=== PATIENT | female | born 2000 | race Caucasian/White ===

== ENCOUNTER 2021-09-19 02:26 | Inpatient (IN) ==
[2021-09-19] MEDS ORDERED: Charcoal ACTIVATED 25 GM/120 ML BTL PO ONE (02:45)
[2021-09-19 03:30] LABS: Hematocrit 34 % (35-47); Hemoglobin 10.7 g/dL (12.0-16.0); Mean Corpuscular HGB Conc 32 g/dL (31-36); Mean Corpuscular Hemoglobin 23 pg (27-31); Mean Corpuscular Volume 72 fL (80-97); Mean Platelet Volume 9.3 fL (7.4-10.4); Platelet Count 326 10^3/uL (150-450); Red Blood Count 4.71 10^6 /uL (3.70-4.87); Red Cell Distribution Width 20 % (10-15); White Blood Count 8.5 10^3/uL (3.5-10.8)
[2021-09-19] MEDS: Lactated Ringers 1000 ml BAG 1,000 ML IV SCH ×2 (03:36→03:53)
[2021-09-19 03:47] LABS: ABS Lymphocytes 2.3 10^3/ul (1.0-4.8); ABS Monocytes 0.6 10^3/ul (0-0.8); ABS Neutrophils 4.6 10^3/ul (1.5-7.7); Eosinophil % 12.2 %; Lymphocyte % 26.7 %
[2021-09-19 03:51] LABS: ALT 11 U/L (7-52); AST 18 U/L (13-39); Albumin 4.6 g/dL (3.2-5.2); Albumin/Globulin Ratio 1.7 (1-3); Alkaline Phosphatase 46 U/L (35-149); Anion Gap 7 mmol/L (2-11); Blood Urea Nitrogen 13 mg/dL (6-24); CO2 Carbon Dioxide 26 mmol/L (22-32); Calcium 9.8 mg/dL (8.6-10.3); Chloride 105 mmol/L (101-111); Globulin 2.7 g/dL (2-4); Glucose 89 mg/dL (70-100); Potassium 3.5 mmol/L (3.5-5.0); Sodium 138 mmol/L (135-145); Total Protein 7.3 g/dL (6.4-8.9); eGFR CKD-EPI 96.4 (>60)
[2021-09-19 03:58] LABS: HCG Pregnancy < 0.60 mIU/mL
[2021-09-19 04:10] LABS: Urine Benzodiazepine Screen None Detected (None Detect); Urine Cannabinoids Screen Presumptive Positive (None Detect); Urine Opiates Screen None Detected (None Detect)
[2021-09-19 04:11] LABS: Acetaminophen < 15 mcg/mL; Alcohol, S < 13 mg/dL (<13); Salicylate < 2.50 mg/dL (<30)
[2021-09-19 04:27] LABS: TSH Ultra Thyroid Stim Horm 6.68 mcIU/mL (0.34-5.60)
[2021-09-19 04:28] LABS: Urine Appearance Clear; Urine Bilirubin Negative (Negative); Urine Blood Negative (Negative); Urine Color Straw; Urine Glucose Negative (Negative); Urine Ketones Negative (Negative); Urine Nitrite Negative (Negative); Urine Protein Negative (Negative); Urine Specific Gravity 1.009 (1.002-1.030); Urine Urobilinogen Negative (Negative)
[2021-09-19 06:23] LABS: T4, Total 8.04 mcg/dL (6.09-12.23)
[2021-09-19 06:29] LABS: Free T4 0.75 ng/dL (0.61-1.12)
[2021-09-19] MEDS ORDERED: Al Hydrox/Mg Hydrox/Simet LIQ 30 ML UDC PO PRN (09:01)
[2021-09-19 09:50] LABS: Rapid COVID-19 Molecular Undetected (Undetected)
[2021-09-19] MEDS ORDERED: Albuterol HFA INHALER 8 gm MDI INH PRN (16:11)
[2021-09-23] MEDS ORDERED: Flu vaccine *QUAD* 2021-22* 0.5 ML SYRINGE IM ONE (09:00)
[2021-09-25 12:42] VITALS: BP 111/75
== END 2021-09-25 16:08 | disposition home or self-care (01) | DRG 885 ==
LOC: ED 02:26 → BSU 09:01 → ED 14:50
PROVIDERS: ADMIT Psychiatry & Neurology Psychiatry; ATTEND Psychiatry & Neurology Psychiatry